=== PATIENT | female | born 1945 | race Caucasian/White ===

== ENCOUNTER 2016-12-21 01:44 | Emergency (ER) | payer MEDICARE ==
[2016-12-21 01:53] VITALS: TEMP 97.8
[2016-12-21] MEDS ORDERED: amLODIPine 5 MG TAB PO STA (02:20)
[2016-12-21 02:58] LABS: CH 32.4; CHCM 33.4; HCT 43.3 % (34.0-46.0); HDW 2.22; HGB 14.3 gm/dL (11.4-16.0); MCHC 32.9 g/dL (31.0-37.0); MCV 97.3 fL (80.0-100.0); Mean Platelet Volume 7.8; RBC 4.46 m/uL (3.80-5.40); WBC 6.5 k/uL (3.8-10.6)
[2016-12-21 03:12] LABS: Anion Gap 9 mmol/L; Blood Urea Nitrogen 12 mg/dL (7-17); Calcium 9.5 mg/dL (8.4-10.2); Carbon Dioxide 24 mmol/L (22-30); Chloride 106 mmol/L (98-107); Glucose 109 mg/dL (74-99); Non-African American GFR(MDRD) >60 (>60 ml/min/1.73 sqM); Sodium 139 mmol/L (137-145)
[2016-12-21 03:28] LABS: Prothrombin Time 10.1 sec (9.0-12.0)
[2016-12-21 03:40] VITALS: BP 154/95; PULSE 54; RESP 16
--- NOTE | 2016-12-21 04:14 | ED ---
ENT HPI - General Chief complaint: ENT Stated complaint: Nose bleed Time Seen by Provider: 12/21/16 02:13 Source: patient Mode of arrival: wheelchair Limitations: no limitations - History of Present Illness Initial comments: 8 years old female comes in with a nosebleed ongoing for last few days, right knee orstop bleeding she denies any trauma to the nose she does take some aspirin but no other blood thinners. Her blood pressure has been high in the ER today was 178 she thinks her blood pressure runs around 120 08/28/1928 systolic she denies any chest pain no shortness of breath no abdominal pain no frequency urgency dysuria no sinus symptoms of TIA or CVA - Related Data Home Medications Medication Instructions Recorded Confirmed Ibuprofen [Motrin] 200 mg PO DAILY PRN 02/04/14 12/21/16 Aspirin 81 mg PO DAILY 12/21/16 12/21/16 Previous Rx's Medication Instructions Recorded amLODIPine BESYLATE [Norvasc] 2.5 mg PO DAILY #30 tab 12/21/16 Allergies Allergy/AdvReac Type Severity Reaction Status Date / Time codeine Allergy Unknown Verified 02/04/14 16:24 morphine Allergy Unknown Verified 02/04/14 16:25 propoxyphene napsylate Allergy Unknown Verified 02/04/14 16:12 [From Darvocet-N 100] STERI STRIPS Allergy Rash/Hives Uncoded 02/04/14 16:20 Review of Systems ROS Statement: Those systems with pertinent positive or pertinent negative responses have been documented in the HPI. ROS Other: All systems not noted in ROS Statement are negative. Past Medical History Past Medical History: No Reported History History of Any Multi-Drug Resistant Organisms: None Reported Past Surgical History: Bladder Surgery, Hysterectomy, Orthopedic Surgery Past Psychological History: No Psychological Hx Reported Smoking Status: Never smoker Past Alcohol Use History: None Reported Past Drug Use History: None Reported General Exam - General Exam Comments Initial Comments: General: The patient is awake and alert, in no distress, and does not appear acutely ill. Skin: Skin is warm and dry and no rashes or lesions are noted. Eye: Pupils are equal, round and reactive to light, extra-ocular movements are intact; there is normal conjunctiva bilaterally. Ears, nose, mouth and throat: No active bleeding at this point no septal hematoma noticed at this point, oropharynx is clear no signs of bleeding is well Neck: The neck is supple, there is no tenderness or JVD. Cardiovascular: There is a regular rate and rhythm. No murmur, rub or gallop is appreciated. Respiratory: To auscultation bilateral, no wheezing no rhonchi no distress respiratory sinclair noticed Gastrointestinal: Soft, non-distended, non-tender abdomen without masses or organomegaly noted. There is no rebound or guarding present. Bowel sounds are unremarkable. Back: There is no tenderness to palpation in the midline. There is no obvious deformity. Musculoskeletal: Normal ROM, no tenderness, There is no pedal edema. There is no calf tenderness or swelling. No cords were appreciated. Neurological: CN II-XII intact, Cranial nerves III through XII are intact. There are no obvious motor or sensory deficits. Coordination appears grossly intact. Speech is normal. Psychiatric: Cooperative, appropriate mood & affect, normal judgment. Limitations: no limitations Course Vital Signs 12/21/16 12/21/16 12/21/16 01:48 02:14 03:39 Temperature 97.8 F Pulse Rate 66 54 L Respiratory 18 16 Rate Blood Pressure 178/96 166/100 154/95 O2 Sat by Pulse 98 98 Oximetry Medical Decision Making - Lab Data Result diagrams: 12/21/16 02:42 12/21/16 02:42 Lab Results 12/21/16 12/21/16 12/21/16 Range/Units 02:42 02:42 02:42 WBC 6.5 (3.8-10.6) k/uL RBC 4.46 (3.80-5.40) m/uL Hgb 14.3 (11.4-16.0) gm/dL Hct 43.3 (34.0-46.0) % MCV 97.3 (80.0-100.0) fL MCH 32.0 (25.0-35.0) pg MCHC 32.9 (31.0-37.0) g/dL RDW 14.0 (11.5-15.5) % Plt Count 238 (150-450) k/uL PT 10.1 (9.0-12.0) sec INR 1.0 (<1.2) Sodium 139 (137-145) mmol/L Potassium 4.0 (3.5-5.1) mmol/L Chloride 106 (98-107) mmol/L Carbon Dioxide 24 (22-30) mmol/L Anion Gap 9 mmol/L BUN 12 (7-17) mg/dL Creatinine 0.70 (0.52-1.04) mg/dL Est GFR (MDRD) Af Amer >60 (>60 ml/min/1.73 sqM) Est GFR (MDRD) Non-Af >60 (>60 ml/min/1.73 sqM) Glucose 109 H (74-99) mg/dL Calcium 9.5 (8.4-10.2) mg/dL Disposition Clinical Impression: Epistaxis, Hypertension Disposition: HOME SELF-CARE Condition: Good Instructions: Nosebleed (ED) Additional Instructions: Patient is advised to keep the good Lord her blood pressure daily for next 7 days and see FD first and then see Dr. Lopez for ongoing epistaxis Prescriptions: amLODIPine BESYLATE [Norvasc] 2.5 mg PO DAILY #30 tab Referrals: Horace Barillas DO [Primary Care Provider] - 1-2 days Jeovany Ashley DO [Doctor of Osteopathic Medicine] - 1-2 days
== END 2016-12-21 04:27 | disposition home or self-care (01) ==
LOC: EC 01:44
DX: I10 Essential (primary) hypertension (principal); R04.0 Epistaxis; Z79.82 Long term (current) use of aspirin; Z88.5 Allergy status to narcotic agent; Z91.09 Other allergy status, other than to drugs and biological substances
CPT/HCPCS: 36415; 80048; 85027; 85610; 99283

== ENCOUNTER 2016-12-25 08:18 | Emergency (ER) | payer MEDICARE ==
[2016-12-25 08:26] VITALS: TEMP 96.9
[2016-12-25] MEDS ORDERED: LIDOCAINE/EPINEPHR/TETRACAINE 5 ML BOTTLE TOPICAL ONE ×3 (08:29→08:31)
[2016-12-25] MEDS ORDERED: SODIUM CHLORIDE 0.9% 500 ML IV STA (08:49)
--- NOTE | 2016-12-25 08:54 | ED ---
General Adult HPI - General Chief complaint: ENT Stated complaint: Nosebleed Time Seen by Provider: 12/25/16 08:29 Source: EMS, RN notes reviewed Mode of arrival: EMS Limitations: no limitations - History of Present Illness Initial comments: Patient 71-year-old female who presents emergency room today by EMS, the chief complaint of epistaxis that started at 6 AM. Patient does admit that she has had nosebleeds on and off over the last several days and is scheduled to see ENT doctor either today or in 2 days. Patient states that her blood pressure has been elevated but has been taking blood pressure medication as prescribed recently starting just a few days ago. Patient states she was able take it this morning. She states that she was just talking on the phone with a nosebleed began again this morning. States at this time shows no longer physically on the back of the throat. States she has used the nasal clams. She denies any complaints or symptoms. States that she used to take aspirin 3 times a week but has not taken it over the last few days. She denies any other blood thinners. Patient denies any recent fever, chills, shortness of breath, chest pain, back pain, abdominal pain, nausea or vomiting, numbness or tingling , dysuria or hematuria, constipation or diarrhea, headaches or visual changes, or any other complaints. - Related Data Home Medications Medication Instructions Recorded Confirmed Acetaminophen Tab [Tylenol Tab] 325 mg PO Q6H PRN 12/25/16 12/25/16 Esomeprazole Magnesium [NexIUM] 20 mg PO DAILY 12/25/16 12/25/16 Previous Rx's Medication Instructions Recorded amLODIPine BESYLATE [Norvasc] 2.5 mg PO DAILY #30 tab 12/21/16 Allergies Allergy/AdvReac Type Severity Reaction Status Date / Time codeine Allergy Unknown Verified 12/25/16 09:00 fexofenadine [From Mable] Allergy nose bleeds Verified 12/25/16 09:00 morphine Allergy Unknown Verified 12/25/16 09:00 propoxyphene napsylate Allergy Unknown Verified 12/25/16 09:00 [From Darvocet-N 100] STERI STRIPS Allergy Rash/Hives Uncoded 12/25/16 08:26 Review of Systems ROS Statement: Those systems with pertinent positive or pertinent negative responses have been documented in the HPI. ROS Other: All systems not noted in ROS Statement are negative. Past Medical History Past Medical History: Hypertension History of Any Multi-Drug Resistant Organisms: None Reported Past Surgical History: Bladder Surgery, Hysterectomy, Orthopedic Surgery Past Psychological History: No Psychological Hx Reported Smoking Status: Never smoker Past Alcohol Use History: None Reported Past Drug Use History: None Reported General Exam - General Exam Comments Initial Comments: General: The patient is awake and alert, in no distress, and does not appear acutely ill. Eye: Pupils are equal, round and reactive to light, extra-ocular movements are intact. No nystagmus. There is normal conjunctiva bilaterally. No signs of icterus. Ears, nose, mouth and throat: There are moist mucous membranes and no oral lesions. Both left and right nostrils are clear and no signs of bleeding. Posterior pharynx is clear. Neck: The neck is supple, there is no tenderness or JVD. Cardiovascular: There is a regular rate and rhythm. No murmur, rub or gallop is appreciated. Respiratory: Lungs are clear to auscultation, respirations are non-labored, breath sounds are equal. No wheezes, stridor, rales, or rhonchi. Musculoskeletal: Normal ROM, no tenderness. Strength 5/5. Sensation intact. Pulses equal bilaterally 2+. Neurological: A&O x 3. CN II-XII intact, There are no obvious motor or sensory deficits. Coordination appears grossly intact. Speech is normal. Skin: Skin is warm and dry and no rashes or lesions are noted. Psychiatric: Cooperative, appropriate mood & affect, normal judgment. Limitations: no limitations Course Vital Signs 12/25/16 08:22 Temperature 96.9 F L Pulse Rate 89 Respiratory 20 Rate Blood Pressure 157/105 - Reevaluation(s) Reevaluation #1: 12/25/16 08:54 LET Solution has been placed on the right nostril. Patient will be continued to be monitored and blood pressure repeated. Patient will be given 500 mL bolus. Reevaluation #2: 12/25/16 09:49 Patient did have located epinephrine and tetracaine placed on a [place] placed into the right nostril. This was left in for proximal bowel removed and patient has been observed for approximately another 30 minutes with no rebleeding. At this time there is no sign of blood. Posterior pharynx is clear. Patient does have an appointment with ENT tomorrow. Patient will be discharged home advised return for any other concerns. Medical Decision Making - Lab Data Result diagrams: 12/25/16 09:10 12/25/16 09:10 Lab Results 12/25/16 12/25/16 Range/Units 09:10 09:10 WBC 8.8 (3.8-10.6) k/uL RBC 4.15 (3.80-5.40) m/uL Hgb 13.1 (11.4-16.0) gm/dL Hct 40.9 (34.0-46.0) % MCV 98.7 (80.0-100.0) fL MCH 31.5 (25.0-35.0) pg MCHC 31.9 (31.0-37.0) g/dL RDW 13.7 (11.5-15.5) % Plt Count 242 (150-450) k/uL Neutrophils % 79 % Lymphocytes % 12 % Monocytes % 5 % Eosinophils % 2 % Basophils % 0 % Neutrophils # 7.0 (1.3-7.7) k/uL Lymphocytes # 1.1 (1.0-4.8) k/uL Monocytes # 0.5 (0-1.0) k/uL Eosinophils # 0.2 (0-0.7) k/uL Basophils # 0.0 (0-0.2) k/uL Sodium 143 (137-145) mmol/L Potassium 5.1 (3.5-5.1) mmol/L Chloride 111 H (98-107) mmol/L Carbon Dioxide 23 (22-30) mmol/L Anion Gap 9 mmol/L BUN 14 (7-17) mg/dL Creatinine 0.71 (0.52-1.04) mg/dL Est GFR (MDRD) Af Amer >60 (>60 ml/min/1.73 sqM) Est GFR (MDRD) Non-Af >60 (>60 ml/min/1.73 sqM) Glucose 92 (74-99) mg/dL Calcium 9.2 (8.4-10.2) mg/dL Disposition Clinical Impression: Epistaxis Disposition: HOME SELF-CARE Condition: Good Instructions: Nosebleed (ED) Additional Instructions: Please use nasal clams for 20 minutes of bleeding recurs. If rebleeding is uncontrolled at home please return here to the emergency room. Please follow- up with ENT with her scheduled appointment tomorrow. Referrals: Horace Barillas DO [Primary Care Provider] - 1-2 days Jeovany Ashley DO [Doctor of Osteopathic Medicine] - 1-2 days Time of Disposition: 09:49
[2016-12-25 09:27] LABS: Basophils % (A) 0 %; CH 32.3; CHCM 32.9; Eosinophils # (A) 0.2 k/uL (0-0.7); Eosinophils % (A) 2 %; HCT 40.9 % (34.0-46.0); HDW 2.22; HGB 13.1 gm/dL (11.4-16.0); Luc % (Auto) 1; Lymphocytes # (A) 1.1 k/uL (1.0-4.8); Lymphocytes % (A) 12 %; MCH 31.5 pg (25.0-35.0); MCHC 31.9 g/dL (31.0-37.0); MCV 98.7 fL (80.0-100.0); Mean Platelet Volume 8.2; Monocytes # (A) 0.5 k/uL (0-1.0); Monocytes % (A) 5 %; Neutrophils % (A) 79 %; RBC 4.15 m/uL (3.80-5.40); RDW 13.7 % (11.5-15.5); WBC 8.8 k/uL (3.8-10.6); WBC (Perox) 8.95
[2016-12-25 09:44] LABS: Anion Gap 9 mmol/L; Blood Urea Nitrogen 14 mg/dL (7-17); Calcium 9.2 mg/dL (8.4-10.2); Carbon Dioxide 23 mmol/L (22-30); Chloride 111 mmol/L (98-107); Glucose 92 mg/dL (74-99); Non-African American GFR(MDRD) >60 (>60 ml/min/1.73 sqM); Potassium 5.1 mmol/L (3.5-5.1); Sodium 143 mmol/L (137-145)
[2016-12-25 10:20] VITALS: BP 139/79; PULSE 82; RESP 16
[2016-12-25 10:22] LABS: Partial Thromboplastin Time 21.7 sec (22.0-30.0)
== END 2016-12-25 10:20 | disposition home or self-care (01) ==
LOC: EC 08:18
DX: R04.0 Epistaxis (principal); I10 Essential (primary) hypertension; Z79.899 Other long term (current) drug therapy; Z88.5 Allergy status to narcotic agent; Z88.8 Allergy status to other drugs, medicaments and biological substances; Z91.048 Other nonmedicinal substance allergy status
CPT/HCPCS: 36415; 80048; 85025; 85610; 85730; 96360; 99284

== ENCOUNTER → 2017-01-02 | Outpatient (CLI) | payer MEDICARE ==
--- NOTE | 2017-01-02 15:51 | CT ---
EXAMINATION TYPE: CT sinus wo con DATE OF EXAM: 01/02/2017 COMPARISON: NONE HISTORY: Epistaxis and chronic sinusitis. CT DLP: 575.30 mGycm. Automated Exposure Control for Dose Reduction was Utilized. TECHNIQUE: CT scan of the sinuses is performed without contrast, axial images are obtained, coronal r eformatted images are also reviewed. FINDINGS: There is a nasal septal deviation. There is moderate mucosal thickening involving the ethmo id air cells and maxillary sinuses with areas of mucous retention cyst or polyp within the maxillary sinuses. Ostiomeatal complex appears to be occluded bilaterally. No air-fluid levels. Moderate size silvina bul losa on the left. Visualized nasopharynx and oropharynx are symmetric. Intraorbital structures and intracranial structu res are symmetric. Sphenoid sinus demonstrates moderate mucosal thickening and there is mild mucosal thickening involvin g the frontal sinuses. IMPRESSION: 1. Mild to moderate changes of chronic sinusitis with occlusion of the ostiomeatal complex bilaterall y.
== END | disposition home or self-care (01) ==
LOC: RADCTMAIN 15:11
PROVIDERS: ATTEND Otolaryngology
DX: J32.9 Chronic sinusitis, unspecified (principal)
CPT/HCPCS: 70486

== ENCOUNTER 2017-05-29 16:08 | Emergency (ER) | payer MEDICARE ==
[2017-05-29 17:02] VITALS: RESP 18
--- NOTE | 2017-05-29 17:43 | ED ---
Abdominal Pain HPI - General Chief Complaint: Abdominal Pain Stated Complaint: Abd Pain, Left side pain Time Seen by Provider: 05/29/17 17:43 Source: patient, family Mode of arrival: wheelchair Limitations: no limitations - History of Present Illness Initial Comments: Patient is a 72-year-old female presenting for abdominal pain of sudden onset. She states that she has a history of kidney stones with the last occurring approximately 25 years ago. This episode started abruptly at 2:30 PM is located in the left flank and feels a pressure sensation. She admits to chills as well as one episode of nausea and vomiting. She denies any dysuria but states that she had increased frequency of urine a couple nights ago. She also denies any chest pain or shortness of breath. - Related Data Home Medications Medication Instructions Recorded Confirmed Esomeprazole Magnesium [NexIUM] 20 mg PO DAILY 12/25/16 05/29/17 Aspirin EC [Ecotrin Low Dose] 81 mg PO DAILY PRN 05/29/17 05/29/17 Ibuprofen [Motrin Ib] 400 mg PO Q6HR PRN 05/29/17 05/29/17 amLODIPine BESYLATE [Norvasc] 5 mg PO DAILY 05/29/17 05/29/17 Previous Rx's Medication Instructions Recorded Ibuprofen [Motrin] 400 mg PO Q6HR PRN #20 tab 05/29/17 Ondansetron Odt [Zofran Odt] 4 mg PO Q8HR PRN #15 tab 05/29/17 Allergies Allergy/AdvReac Type Severity Reaction Status Date / Time adhesive tape Allergy Rash/Hives Verified 05/29/17 18:44 codeine Allergy Unknown Verified 05/29/17 18:44 fexofenadine [From Mable] Allergy nose bleeds Verified 05/29/17 18:44 Iodinated Contrast- Oral and Allergy Rash/Hives Verified 05/29/17 18:44 IV Dye Latex, Natural Rubber Allergy Rash/Hives Verified 05/29/17 18:44 morphine Allergy Unknown Verified 05/29/17 18:44 propoxyphene napsylate Allergy Unknown Verified 05/29/17 18:44 [From Darvocet-N 100] STERI STRIPS Allergy Rash/Hives Uncoded 05/29/17 17:03 Review of Systems ROS Statement: Those systems with pertinent positive or pertinent negative responses have been documented in the HPI. Constitutional: Negative for fatigue and fever. Positive for chills HENT: Negative for congestion. Respiratory: Negative for chest tightness, shortness of breath and wheezing. Cardiovascular: Negative for chest pain and palpitations. Gastrointestinal: Negative for abdominal pain. Negative for abdominal distention , diarrhea, positive for nausea and vomiting. Genitourinary: Negative for dysuria. Positive for increased urinary frequency Musculoskeletal: Negative for back pain, neck pain and neck stiffness. Positive for left flank pain Skin: Negative for color change. Neurological: Negative for dizziness, speech difficulty, weakness and light- headedness. Psychiatric/Behavioral: Negative for agitation and confusion. The patient is not nervous/anxious. ROS Other: All systems not noted in ROS Statement are negative. Past Medical History Past Medical History: Hypertension History of Any Multi-Drug Resistant Organisms: None Reported Past Surgical History: Bladder Surgery, Hysterectomy, Orthopedic Surgery Past Psychological History: No Psychological Hx Reported Smoking Status: Never smoker Past Alcohol Use History: None Reported Past Drug Use History: None Reported General Exam - General Exam Comments Initial Comments: Physical Exam Constitutional: Pt is oriented to person, place, and time. Pt appears well- developed and well-nourished. No distress. HENT: Head: Normocephalic and atraumatic. Eyes: EOM are normal. Neck: Normal range of motion. Neck supple. Cardiovascular: Normal rate, regular rhythm, S1 normal, S2 normal and normal heart sounds. Exam reveals no gallop and no friction rub. No murmur heard. Pulmonary/Chest: Effort normal and breath sounds normal. No tachypnea and no bradypnea. No respiratory distress. No wheezes or rales noted. Abdominal: Soft. Bowel sounds are normal. Pt exhibits no shifting dullness, no distension, no pulsatile liver, no fluid wave, no abdominal bruit and no ascites. There is no tenderness. There is no rigidity, no rebound, no guarding, no tenderness at McBurney's point and negative Shultz's sign. Left-sided flank tenderness with light palpation Musculoskeletal: Normal range of motion. Neurological: Pt is alert and oriented to person, place, and time. No cranial nerve deficit. Skin: Skin is warm and dry. No rash noted. He is not diaphoretic. No erythema. No pallor. Psychiatric: He has a normal mood and affect. His behavior is normal. Thought content normal. Limitations: no limitations Course Vital Signs 05/29/17 16:57 Temperature 98.4 F Pulse Rate 63 Respiratory 18 Rate Blood Pressure 155/82 O2 Sat by Pulse 98 Oximetry Medical Decision Making - Medical Decision Making Laboratory studies revealed that kidney function was preserved and urinalysis showed no evidence of infection but significant hematuria. CT of the abdomen was also performed and showed a 2-3 mm calcification in the proximal left ureter with no hydronephrosis. The patient's pain was also well controlled and she was advised to follow-up with urology on an as needed basis. She was also given a prescription for Motrin as well as Zofran. Narcotics were not given as the patient currently declined. She was advised to return to the emergency department if she developed fevers/chills, intractable abdominal pain, or oliguria. Patient was agreeable to plan. Explained all labs and diagnostic test results and that we will discharge the patient home and patient is to follow up with PCP in 1-2 days and return to the ED if symptoms worsen. Pt is agreeable to plan. - Lab Data Result diagrams: 05/29/17 18:18 05/29/17 18:18 Lab Results 05/29/17 05/29/17 05/29/17 Range/Units 18:18 18:18 18:18 WBC 11.2 H (3.8-10.6) k/uL RBC 4.74 (3.80-5.40) m/uL Hgb 12.4 (11.4-16.0) gm/dL Hct 41.0 (34.0-46.0) % MCV 86.5 (80.0-100.0) fL MCH 26.2 (25.0-35.0) pg MCHC 30.3 L (31.0-37.0) g/dL RDW 15.5 (11.5-15.5) % Plt Count 265 (150-450) k/uL Neutrophils % 81 % Lymphocytes % 12 % Monocytes % 4 % Eosinophils % 2 % Basophils % 0 % Neutrophils # 9.1 H (1.3-7.7) k/uL Lymphocytes # 1.3 (1.0-4.8) k/uL Monocytes # 0.5 (0-1.0) k/uL Eosinophils # 0.2 (0-0.7) k/uL Basophils # 0.0 (0-0.2) k/uL Hypochromasia Marked Sodium 141 (137-145) mmol/L Potassium 5.4 H (3.5-5.1) mmol/L Chloride 106 (98-107) mmol/L Carbon Dioxide 21 L (22-30) mmol/L Anion Gap 14 mmol/L BUN 13 (7-17) mg/dL Creatinine 0.80 (0.52-1.04) mg/dL Est GFR (MDRD) Af Amer >60 (>60 ml/min/1.73 sqM) Est GFR (MDRD) Non-Af >60 (>60 ml/min/1.73 sqM) Glucose 112 H (74-99) mg/dL Calcium 9.9 (8.4-10.2) mg/dL Total Bilirubin 0.8 (0.2-1.3) mg/dL AST 44 H (14-36) U/L ALT 21 (9-52) U/L Alkaline Phosphatase 142 H (38-126) U/L Total Protein 7.7 (6.3-8.2) g/dL Albumin 4.6 (3.5-5.0) g/dL Lipase 69 (23-300) U/L Urine Color Yellow Urine Appearance Cloudy H (Clear) Urine pH 8.5 H (5.0-8.0) Ur Specific [place] 1.015 (1.001-1.035) Urine Protein 1+ H (Negative) Urine Glucose (UA) Negative (Negative) Urine Ketones Trace H (Negative) Urine Blood Moderate H (Negative) Urine Nitrite Negative (Negative) Urine Bilirubin Negative (Negative) Urine Urobilinogen <2.0 (<2.0) mg/dL Ur Leukocyte Esterase Negative (Negative) Urine RBC >182 H (0-5) /hpf Urine WBC 4 (0-5) /hpf Ur Squamous Epith Cells 1 (0-4) /hpf Urine Mucus Occasional H (None) /hpf Disposition Clinical Impression: Renal calculus, left, Hematuria Disposition: HOME SELF-CARE Condition: Good Instructions: Kidney Stones (ED), How to Strain Your Urine (ED) Prescriptions: Ibuprofen [Motrin] 400 mg PO Q6HR PRN #20 tab PRN Reason: Pain Ondansetron Odt [Zofran Odt] 4 mg PO Q8HR PRN #15 tab PRN Reason: Nausea And Vomiting Referrals: Horace Barillas DO [Primary Care Provider] - 1-2 days Patrick Mcmanus MD [STAFF PHYSICIAN] - 1-2 days Time of Disposition: 19:34
[2017-05-29] MEDS ORDERED: SODIUM CHLORIDE 0.9% 500 ML IV STA (17:55)
[2017-05-29] MEDS ORDERED: KETOROLAC 30 MG/ML 1 ML VIAL IVP STA (17:55)
[2017-05-29] MEDS ORDERED: ONDANSETRON 4 MG/2 ML VIAL IVP STA (17:57)
[2017-05-29 18:29] LABS: Basophils % (A) 0 %; Eosinophils # (A) 0.2 k/uL (0-0.7); Eosinophils % (A) 2 %; HGB 12.4 gm/dL (11.4-16.0); Hypochromasia Marked; Lymphocytes # (A) 1.3 k/uL (1.0-4.8); Lymphocytes % (A) 12 %; MCH 26.2 pg (25.0-35.0); MCHC 30.3 g/dL (31.0-37.0); MCV 86.5 fL (80.0-100.0); Mean Platelet Volume 8.7; Monocytes # (A) 0.5 k/uL (0-1.0); Monocytes % (A) 4 %; Neutrophils # (A) 9.1 k/uL (1.3-7.7); Neutrophils % (A) 81 %; Platelet Count 265 k/uL (150-450); RBC 4.74 m/uL (3.80-5.40); RDW 15.5 % (11.5-15.5); WBC 11.2 k/uL (3.8-10.6)
[2017-05-29 18:31] LABS: Appearance,Urine Cloudy (Clear); Bilirubin,Urine Negative (Negative); Blood,Urine Moderate (Negative); Color,Urine Yellow; Glucose,Urine (UA) Negative (Negative); Ketones,Urine Trace (Negative); Leukocyte Esterase,Urine Negative (Negative); Mucus,Urine Occasional /hpf; Nitrite,Urine Negative (Negative); PH, Urine 8.5 (5.0-8.0); Protein,Urine 1+ (Negative); RBC,Urine >182 /hpf (0-5); Specific Gravity,Urine 1.015 (1.001-1.035); Squamous Epithelial Cell,Urine 1 /hpf (0-4); Urobilinogen,Urine <2.0 mg/dL (<2.0); WBC,Urine 4 /hpf (0-5)
[2017-05-29 18:41] LABS: ALT 21 U/L (9-52); AST 44 U/L (14-36); Albumin 4.6 g/dL (3.5-5.0); Alkaline Phosphatase 142 U/L (38-126); Anion Gap 14 mmol/L; Blood Urea Nitrogen 13 mg/dL (7-17); Calcium 9.9 mg/dL (8.4-10.2); Carbon Dioxide 21 mmol/L (22-30); Chloride 106 mmol/L (98-107); Glucose 112 mg/dL (74-99); Lipase 69 U/L (23-300); Sodium 141 mmol/L (137-145); Total Bilirubin 0.8 mg/dL (0.2-1.3); Total Protein 7.7 g/dL (6.3-8.2)
[2017-05-29 19:19] LABS: Potassium 5.4 mmol/L (3.5-5.1)
--- NOTE | 2017-05-29 19:19 | CT ---
EXAMINATION TYPE: CT abdomen pelvis wo con DATE OF EXAM: 05/29/2017 COMPARISON: NONE HISTORY: Left side/back pain starting today CT DLP: 322.1 mGycm Automated exposure control for dose reduction was used. TECHNIQUE: Helical acquisition of images was performed from the lung bases through the pelvis. FINDINGS: The lung bases are clear of consolidation. There is no pleural effusion. There is small hiatal hernia . There is a 1 cm cyst in the superior right lobe of the liver. Bile ducts are not dilated. There are small calcifications in the posterior gallbladder consistent with gallstones. There are small calcif ied splenic granuloma. There is no evidence of a pancreatic mass. There is no adrenal mass. Kidneys s how dilated left renal pelvis. Kidneys have normal size. There appears to be a tiny 2 to 3 mm calcifi cation in the proximal left ureter. There is no ascites. I see no intestinal wall thickening. There are no dilated loops. Appendix appear s normal. There is some mild fat stranding around the left kidney. I see no bony destructive process. There is no evidence of a pelvic mass. Bladder distends smoothly. There is no evidence of ascites. T here is no sign of free air. IMPRESSION: TINY CALCULUS IN THE PROXIMAL LEFT URETER WITH MODERATE LEFT-SIDED HYDRONEPHROSIS AND MILD PERINEPHRI C EDEMA. HEALED GRANULOMATOUS DISEASE. SMALL CALCIFIED GALLSTONES. NO DILATED DUCTS. SMALL HIATAL HERNIA.
[2017-05-29 20:05] VITALS: BP 147/90; PULSE 69; TEMP 97.2
== END 2017-05-29 20:01 | disposition home or self-care (01) ==
LOC: EC 16:08
DX: N20.0 Calculus of kidney (principal); I10 Essential (primary) hypertension; Z79.899 Other long term (current) drug therapy; Z91.048 Other nonmedicinal substance allergy status; Z88.5 Allergy status to narcotic agent; Z88.8 Allergy status to other drugs, medicaments and biological substances; Z91.041 Radiographic dye allergy status; Z91.040 Latex allergy status; Z53.29 Procedure and treatment not carried out because of patient's decision for other reasons
CPT/HCPCS: 36415; 80053; 83690; 85025; 81001; 87086; 74176; 99284; 96374; 96375; J2405; J1885; 87077; 87186